=== PATIENT | male | born 1990 | race Caucasian/White ===

== ENCOUNTER 2018-07-02 08:18 | Emergency (ER) | payer MEDICAID ==
[~2018-07-02] VITALS: Ht 180.3 cm; Wt 159.7 kg
[2018-07-02 08:28] VITALS: Ht 180.3 cm; Wt 159.7 kg
[2018-07-02 09:13] VITALS: BP 141/99
== END 2018-07-02 09:13 | disposition home or self-care (01) ==
LOC: ED 08:18
DX: J36 Peritonsillar abscess (principal); H10.89 Other conjunctivitis; Z88.0 Allergy status to penicillin

== ENCOUNTER 2019-03-22 09:10 | Emergency (ER) | payer SELFPAY ==
[~2019-03-22] VITALS: Ht 180.3 cm; Wt 161.0 kg
[2019-03-22 09:16] VITALS: BP 162/92; Ht 180.3 cm; Wt 161.0 kg
== END 2019-03-22 11:10 | disposition home or self-care (01) ==
LOC: ED 09:10
DX: L25.8 Unspecified contact dermatitis due to other agents (principal); T36.0X5A Adverse effect of penicillins, initial encounter; Z88.0 Allergy status to penicillin; Y92.89 Other specified places as the place of occurrence of the external cause